=== PATIENT | male | born 1950 | race Caucasian/White ===

== ENCOUNTER 2021-05-14 09:44 | Day surgery (SDC) | payer MEDICARE ==
[~2021-05-14] VITALS: Ht 180.3 cm; Wt 102.5 kg
[~2021-05-14 09:44] MED LIST: BRIMONIDINE0.15 % OU; CALCIUM500 M5 PO; COQ-1030 M1 PO; LIPITOR20 M1 PO; MV-ONE PO; XELPROS0.005 % OU; ZESTRIL10 M1 PO
[2021-05-14 13:31] VITALS: BP 142/80
== END 2021-05-14 13:00 | disposition home or self-care (01) ==
LOC: ENDO 09:44 → ORM 10:10 → ENDO 12:30
PROVIDERS: ATTEND Surgery
PROC: 0DBH8ZX Excision of Cecum, Via Natural or Artificial Opening Endoscopic, Diagnostic (ICD-10-PCS; principal; 2021-05-14)
DX: Z12.11 Encounter for screening for malignant neoplasm of colon (principal); D12.0 Benign neoplasm of cecum; K57.30 Diverticulosis of large intestine without perforation or abscess without bleeding; K64.8 Other hemorrhoids; E78.5 Hyperlipidemia, unspecified; Z80.0 Family history of malignant neoplasm of digestive organs